=== PATIENT | male | born 2000 | race Caucasian/White ===

== ENCOUNTER 2025-04-12 17:07 | Emergency (ER) | payer SELFPAY ==
[2025-04-12] MEDS: Sodium Chloride 0.9% 2,000 ML IV ONE (17:49)
[2025-04-12] MEDS: Acetaminophen 500 MG Tab PO ONE (17:52)
[2025-04-12 17:56] LABS: BASOPHILS ABSOLUTE AUTO 0.06 K/uL (0.00-0.20); BASOPHILS PERCENT AUTO 0.3 % (0.0-1.0); HEMATOCRIT 42.6 % (42.0-52.0); HEMOGLOBIN 14.4 g/dL (14.0-18.0); IMMATURE GRAN ABSOLUTE AUTO 0.09 K/uL (0.00-0.05); IMMATURE GRAN PERCENT AUTO 0.4 % (0.0-0.4); LYMPHOCYTES ABSOLUTE AUTO 1.15 K/uL (1.00-4.80); LYMPHOCYTES PERCENT AUTO 5.4 % (24.0-44.0); MEAN CORPUSCULAR HEMOGLOBIN 32.1 pg (28.0-32.0); MEAN CORPUSCULAR HGB CONC 33.8 g/dL (32.0-36.0); MEAN CORPUSCULAR VOLUME 94.9 fL (83.0-99.0); MEAN PLATELET VOLUME 10.2 fL (9.4-12.4); MONOCYTES ABSOLUTE AUTO 1.26 K/uL (0.00-0.80); MONOCYTES PERCENT AUTO 5.9 % (0.0-8.0); NEUTROPHILS ABSOLUTE AUTO 18.67 K/uL (1.80-7.70); PLATELET COUNT,PLT 283 K/uL (150-400); RED BLOOD CELL COUNT 4.49 M/uL (4.52-5.90); WHITE BLOOD CELL COUNT,WBC 21.23 K/uL (3.9-11.3)
[2025-04-12 18:22] LABS: A/G RATIO 0.7 (0.9-1.6); ALBUMIN 3.1 g/dL (3.4-5.0); BILIRUBIN TOTAL 0.5 mg/dL (0.2-1.0); CALCIUM 8.4 mg/dL (8.5-10.1); CREATININE 1.3 mg/dL (0.8-1.3); EST CRCL DRUG DOSING (CG) 80.11 mL/min; POTASSIUM,K 3.6 mmol/L (3.5-5.1); PROTEIN TOTAL,TP 7.3 g/dL (6.4-8.2)
[2025-04-12] MEDS ORDERED: Doxycycline 100 MG in Sodium Chloride 0.9% 100 ML IV ONE (18:44)
[2025-04-12] MEDS: cefTRIAXone 2 GM in Water For Injection, Sterile 20 ML IVPUSH ONE (19:00)
[2025-04-12] MEDS: Doxycycline 100 MG in Sodium Chloride 0.9% 100 ML IV ONE (19:03)
[2025-04-12] MEDS: cefTRIAXone 1 GM in Water For Injection, Sterile 10 ML IVPUSH ONE (19:45)
[2025-04-16 09:07] LABS: QNTIFERON MITOGEN MIN NIL 9.42 IU/mL; QNTIFERON NIL 0.58 IU/mL; QNTIFERON PLUS TB1 MINUS NIL 0.01 IU/mL (<=0.34); QNTIFERON PLUS TB2 MINUS NIL 0.03 IU/mL (<=0.34); QNTIFERON TB GOLD PLUS Negative (Negative)
== END 2025-04-12 20:34 | disposition home or self-care (01) ==
LOC: MW.ED 17:07
DX: J18.9 Pneumonia, unspecified organism (principal)
CPT/HCPCS: 36415; 71045; 80053; 83605; 85025; 86480; 87040; 96361; 96365; 96375; 99285; A9270; J0696; J3490; J7030; 99283